=== PATIENT | male | born 1995 | race Caucasian/White ===

== ENCOUNTER 2017-05-08 17:25 | Emergency (ER) | payer SELFPAY ==
[~2017-05-08] VITALS: Ht 172.7 cm; Wt 87.7 kg
[2017-05-08 17:29] VITALS: BP 133/84; PULSE 96; RESP 16; TEMP 100; O2SAT 100
[2017-05-08] MEDS ORDERED: AUGM875T3 PO (17:43)
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
== END 2017-05-08 18:14 | disposition home or self-care (01) ==
LOC: PHEFT 17:25
DX: Z48.02 Encounter for removal of sutures (principal); J45.909 Unspecified asthma, uncomplicated; F17.200 Nicotine dependence, unspecified, uncomplicated
CPT/HCPCS: 99281

== ENCOUNTER 2017-05-11 19:40 | Emergency (ER) | payer SELFPAY ==
[~2017-05-11] VITALS: Ht 172.7 cm; Wt 88.0 kg
[~2017-05-11 19:40] MED LIST: AUGM875T3 PO
[2017-05-11 19:47] VITALS: BP 136/76; PULSE 75; RESP 16; TEMP 99; O2SAT 100
[2017-05-11 21:55] VITALS: BP 136/76; PULSE 75; RESP 16; TEMP 99; O2SAT 100
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
[2017-05-11] MEDS ORDERED: SODIUM CHLOR 0.9% 1000 ML INJ 1,000 ML IV SCH (22:00)
[2017-05-11] MEDS ORDERED: ONDANSETRON HCL 4 MG/2 ML VIAL IV ONE (22:00)
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
[2017-05-11 22:31] LABS: AUTOMATED NEUTROPHIL # 2.3 TH/MM3 (1.8-7.7); BASOPHIL % 1.2 % (0.0-2.0); EOSINOPHIL % 0.5 % (0.0-4.0); HEMO FLAGS DIFF FINAL; LYMPH % 24.7 % (9.0-44.0); LYMPHOCYTE # 0.9 TH/MM3 (1.0-4.8); MEAN CELL VOLUME 90.7 FL (80.0-100.0); MEAN CORPUSCULAR HEMOGLOBIN 31.3 PG (27.0-34.0); MEAN CORPUSCULAR HGB CONC 34.5 % (32.0-36.0); MONO % 15.3 % (0.0-8.0); NEUT % 58.3 % (16.0-70.0); PLATELET COUNT 132 TH/MM3 (150-450); RED BLOOD COUNT 4.52 MIL/MM3 (4.50-5.90); RED CELL DISTRIBUTION WIDTH 11.9 % (11.6-17.2); WHITE BLOOD COUNT 3.8 TH/MM3 (4.0-11.0)
[2017-05-11] MEDS ORDERED: PROC10TA PO (22:36)
[2017-05-11 22:52] LABS: POTASSIUM 4.2 MEQ/L (3.5-5.1)
[2017-05-11 22:55] LABS: BICARBONATE 31.2 MEQ/L (21.0-32.0)
[2017-05-11 23:24] VITALS: BP 110/61; PULSE 82; RESP 18; O2SAT 98
== END 2017-05-11 23:47 | disposition home or self-care (01) ==
LOC: PHED 19:40
DX: F07.81 Postconcussional syndrome (principal); R51 Headache; E86.0 Dehydration; R11.2 Nausea with vomiting, unspecified; J45.909 Unspecified asthma, uncomplicated; F17.200 Nicotine dependence, unspecified, uncomplicated
CPT/HCPCS: 70450; 80048; 85025; 96361; 96374; 99285; J2405; J7030